=== PATIENT | female | born 1995 | race Caucasian/White ===

== ENCOUNTER 2016-12-03 11:26 | Day surgery (SDC) | payer OTHER ==
[2016-12-02 11:53] VITALS: BMI 20.7
[~2016-12-03 11:26] MED LIST: LACTATED RINGERS 1,000 ML IV SCH; LIDOCAINE 1% 20 ML VIAL (10MG/ML) FOR IV START INTRADERMA PRN
[2016-12-03 11:58] VITALS: TEMP 97
[2016-12-03] MEDS ORDERED: LIDOCAINE 1% INJ 10MG/ML (20 ML MDV) ONE (12:22)
[2016-12-03] MEDS ORDERED: PROPOFOL 10 MG/ML 20 ML VIAL IV ONE (12:22)
--- NOTE | 2016-12-03 12:36 | P.PCN ---
Date of Procedure: 12/03/16 Preoperative Diagnosis: Postoperative Diagnosis: Procedure(s) Performed: BRIEF HISTORY: Patient is a 21-year-old, pleasant, white female scheduled for an upper endoscopy as a part of evaluation of epigastric pain for the last 2 years duration. She was recently given a trial of Prilosec 20 mg daily for a month with no help. PROCEDURE PERFORMED: Esophagogastroduodenoscopy with biopsy . PREOPERATIVE DIAGNOSIS: Epigastric pain of 2 years duration. IV sedation per anesthesia. PROCEDURE: After informed consent was obtained, the patient was brought into the endoscopy unit. IV sedation was administered by Anesthesia under continuous monitoring. Initially the Olympus GIF-140 video endoscope was inserted into the mouth. Esophagus intubated without any difficulty. It was gradually advanced into the stomach and duodenum and carefully examined. in the bulb of the duodenum along the duodenal sweep there was a 2 cm clean-based ulcer along with the right duodenal stricture and the scope could not be advanced into the second part of the duodenum.The scope at this time was withdrawn to the stomach , adequately insufflated with air, and upon careful examination, mucosa of the antrum had scattered erosions and biopsies were done from this area. The , body , cardia and the fundus appeared normal. The scope was then withdrawn into the esophagus. The GE junction was located at 39 cm from the incisors. The esophagus appeared normal. There were no erosions or ulcerations seen and the patient tolerated the procedure well. IMPRESSION: 1. 2 cm clean-based duodenal ulcer along the duodenal sweep with duodenal stricture 2. Antral erosive gastritis. RECOMMENDATIONS: The findings of this examination were discussed with the patient as well as a family. She was advised to follow with the biopsy results. She was given a prescription for Prilosec 20 mg twice daily to be taken half hour before breakfast and dinnertime and follow antireflux measures. She'll be seen in the office in 3 months. Implants: Indications for Procedure: Operative Findings: Description of Procedure:
[2016-12-03 12:54] VITALS: BP 99/57; PULSE 81; RESP 16
== END 2016-12-03 13:27 | disposition home or self-care (01) ==
LOC: ORWHC2ENDO 11:26
PROVIDERS: ATTEND Internal Medicine Gastroenterology
DX: K29.50 Unspecified chronic gastritis without bleeding (principal); K26.9 Duodenal ulcer, unspecified as acute or chronic, without hemorrhage or perforation; K21.9 Gastro-esophageal reflux disease without esophagitis; Z79.3 Long term (current) use of hormonal contraceptives; Z79.899 Other long term (current) drug therapy
CPT/HCPCS: 81025; 88305; 88342; 43239; J2001; J2704

== ENCOUNTER 2017-04-22 08:36 | Day surgery (SDC) | payer BC, OTHER ==
[2017-04-20 15:55] VITALS: BMI 19.1
[~2017-04-22 08:36] MED LIST changes: -LIDOCAINE 1% 20 ML VIAL (10MG/ML) FOR IV START INTRADERMA PRN
[2017-04-22 09:23] VITALS: RESP 16; TEMP 97.5
[2017-04-22] MEDS ORDERED: LIDOCAINE 1% 20 ML VIAL (10MG/ML) FOR IV START INTRADERMA ONE (09:23)
[2017-04-22] MEDS ORDERED: PROPOFOL 10 MG/ML 20 ML VIAL IV ONE (09:55)
[2017-04-22] MEDS ORDERED: LIDOCAINE 1% INJ 10MG/ML (20 ML MDV) ONE (09:55)
[2017-04-22 10:35] VITALS: BP 99/59; PULSE 65
--- NOTE | 2017-04-22 10:52 | P.PCN ---
Date of Procedure: 04/22/17 Procedure(s) Performed: BRIEF HISTORY: Patient is a 21-year-old, pleasant, white female scheduled for an upper endoscopy as a part of evaluation of epigastric pain, intermittent nausea vomiting and early satiety for the last 3 months duration. She had an upper endoscopy done in December 2016 and was noted to have a duodenal stricture and a 2 cm duodenal ulcer. She was advised advised to avoid NSAIDs and was started on Prilosec 20 mg twice daily. She initially felt better but lately he is been having symptoms of early satiety and abdominal bloating and hence she is scheduled for repeat upper endoscopy with possible dilation of the duodenal stricture. PROCEDURE PERFORMED: Esophagogastroduodenoscopy with dilation of the duodenal stricture. PREOPERATIVE DIAGNOSIS: History of duodenal ulcer and duodenal stricture diagnosed in December 2016 now with abdominal pain and early satiety. IV sedation per anesthesia. PROCEDURE: After informed consent was obtained, the patient was brought into the endoscopy unit. IV sedation was administered by Anesthesia under continuous monitoring. Initially the Olympus GIF-140 video endoscope was inserted into the mouth. Esophagus intubated without any difficulty. It was gradually advanced into the stomach and duodenum and carefully examined. The bulb of the duodenum appeared deformed and there was a duodenal stricture identified along the duodenal sweep. The opening of the stricture was less than 5 mm. There was an active ulceration noted just proximal to the stricture. I was not able to advance the scope through the stricture. At this time I used a 10 mm pyloric balloon and the guidewire was passed through the stricture endoscopy really and the balloon was passed over the guidewire and this was dilated initially to 8 mm and subsequently to 9 mm. There was oozing identified and hence further dilation was not performed. The scope could not be advanced to the stricture. The scope at this time was withdrawn to the stomach, adequately insufflated with air, and upon careful examination, mucosa of the antrum, body, cardia and the fundus appeared normal. The scope was then withdrawn into the esophagus. The GE junction was located at 39 cm from the incisors. The esophagus appeared normal. There were no erosions or ulcerations seen and the patient tolerated the procedure well. IMPRESSION: 1. 5 mm duodenal ulcer along with a tight duodenal stricture along the duodenal sweep status post balloon dilation using 8 and 19 mm TTS balloon as described. 2. Esophagus and stomach appeared normal. RECOMMENDATIONS: The findings of this examination were discussed with the patient as well as a family. She'll remain on clear liquid diet today. She will continue on Prilosec 20 mg twice daily and continue with small frequent meals. She'll be seen in office in 3 months from now and if she still remains symptomatic, consider surgical evaluation..
== END 2017-04-22 10:49 | disposition home or self-care (01) ==
LOC: ORWHC2ENDO 08:36
PROVIDERS: ATTEND Internal Medicine Gastroenterology
DX: K31.5 Obstruction of duodenum (principal); K26.9 Duodenal ulcer, unspecified as acute or chronic, without hemorrhage or perforation; K21.9 Gastro-esophageal reflux disease without esophagitis; Z79.899 Other long term (current) drug therapy; Z79.3 Long term (current) use of hormonal contraceptives
CPT/HCPCS: 81025; 43245; J2001; J2704; C1726

== ENCOUNTER 2019-06-08 20:18 | Observation (INO) | payer BC, OTHER ==
[2019-06-08] MEDS ORDERED: SODIUM CHLORIDE 0.9% 500 ML 500 ML IV STA (20:36)
[2019-06-08] MEDS ORDERED: SODIUM CHLORIDE 0.9% 1,000 ML IV STA ×2 (20:36)
[2019-06-08] MEDS ORDERED: ONDANSETRON 4 MG/2 ML VIAL IVP STA (20:37)
[2019-06-08] MEDS ORDERED: PANTOPRAZOLE 40 MG/10 ML VIAL IVP STA (20:37)
--- NOTE | 2019-06-08 20:42 | ED ---
Dizziness HPI - General Chief Complaint: Syncope Stated Complaint: Syncope, facial injury Time Seen by Provider: 06/08/19 20:37 Source: patient, RN notes reviewed, old records reviewed Mode of arrival: ambulatory Limitations: no limitations - History of Present Illness Initial Comments: This is a 23-year-old female Sebastián. She presents today for evaluation regarding a syncopal weakness lightheadedness and dizziness. Patient is off current control of the finisher. Having significant nausea vomiting and vomiting up dark colored material. Black material. Patient has history of ulcer some occasional abdominal pain no chest pain shortness of breath. In route here patient still felt very dizzy lightheaded and weak. Patient denies drug or alcohol abuse. When she did fall she fell forward she did hit her head and sustained while laceration to the nose and right cheek. MD Complaint: dizziness, other (History of syncopal event) -: minutes(s) Timing: sudden onset Description: sense of movement, lightheadedness, near-syncope (Patient did pass out) History of Same: No History of Trauma: No Severity: severe Improves With: other (Patient did have significantly low blood pressure improved with Trendelenburg and IV bolus) Worsens With: movement, position, exertion Associated Symptoms: loss of appetite, weakness - Related Data Home Medications Medication Instructions Recorded Confirmed Biotin 5 mg PO DAILY 06/08/19 06/08/19 Ferrous Sulfate [Feosol] 325 mg PO DAILY 06/08/19 06/08/19 Allergies Allergy/AdvReac Type Severity Reaction Status Date / Time No Known Allergies Allergy Verified 06/08/19 22:22 Review of Systems ROS Statement: Those systems with pertinent positive or pertinent negative responses have been documented in the HPI. ROS Other: All systems not noted in ROS Statement are negative. Past Medical History Past Medical History: GERD/Reflux Additional Past Medical History / Comment(s): ABD PAIN ONGOING worsened with eating with intermittent vomiting,Hiatal hernia with scar tissue History of Any Multi-Drug Resistant Organisms: None Reported Past Surgical History: Tonsillectomy Additional Past Surgical History / Comment(s): EGD Past Anesthesia/Blood Transfusion Reactions: No Reported Reaction, Motion Sickness Past Psychological History: No Psychological Hx Reported Smoking Status: Never smoker Past Alcohol Use History: None Reported Past Drug Use History: None Reported - Past Family History Mother Family Medical History: No Reported History General Exam Limitations: no limitations General appearance: alert, in no apparent distress Head exam: Present: atraumatic, normocephalic, normal inspection Eye exam: Present: normal appearance, PERRL, EOMI. Absent: scleral icterus, c onjunctival injection, periorbital swelling ENT exam: Present: normal exam, mucous membranes moist Neck exam: Present: normal inspection. Absent: tenderness, meningismus, lymphadenopathy Respiratory exam: Present: normal lung sounds bilaterally. Absent: respiratory distress, wheezes, rales, rhonchi, stridor Cardiovascular Exam: Present: regular rate, normal rhythm, normal heart sounds. Absent: systolic murmur, diastolic murmur, rubs, gallop, clicks GI/Abdominal exam: Present: soft, normal bowel sounds. Absent: distended, tenderness, guarding, rebound, rigid Extremities exam: Present: normal inspection, full ROM, normal capillary refill. Absent: tenderness, pedal edema, joint swelling, calf tenderness Back exam: Present: normal inspection Neurological exam: Present: alert, oriented X3, CN II-XII intact Psychiatric exam: Present: normal affect, normal mood Skin exam: Present: warm, dry, intact, normal color. Absent: rash Course Vital Signs 06/08/19 06/08/19 20:23 20:50 Temperature 97.4 F L Pulse Rate 87 70 Respiratory 20 13 Rate Blood Pressure 61/44 103/56 O2 Sat by Pulse 92 L 100 Oximetry - Reevaluation(s) Reevaluation #1: 06/08/19 22:10 Records review Reevaluation #2: 06/08/19 23:03 She's having persistent vomiting of blood as well as blood in the stool here in the ER Reevaluation #3: 06/08/19 23:03 Recurrent sick people feels very presyncope when moving and standing - Consultations Consultation #1: Spoke with [facility] will be agreeable to admit patient will consult GI Medical Decision Making - Medical Decision Making 23 female dear for evaluation regarding syncopal event patient is vomiting dark material black material as well as a black material in stool history of ulcer likely gastric ulcer with bleed. Patient be admitted for monitoring of hemoglobin possible transfusion. - Lab Data Result diagrams: 06/08/19 20:34 06/08/19 20:34 Lab Results 06/08/19 06/08/19 06/08/19 Range/Units 20:32 20:34 20:34 WBC 21.5 H (3.8-10.6) k/uL RBC 3.86 (3.80-5.40) m/uL Hgb 11.8 (11.4-16.0) gm/dL Hct 35.3 (34.0-46.0) % MCV 91.4 (80.0-100.0) fL MCH 30.5 (25.0-35.0) pg MCHC 33.4 (31.0-37.0) g/dL RDW 13.1 (11.5-15.5) % Plt Count 335 (150-450) k/uL Neutrophils % 81 % Lymphocytes % 13 % Monocytes % 4 % Eosinophils % 0 % Basophils % 0 % Neutrophils # 17.4 H (1.3-7.7) k/uL Lymphocytes # 2.8 (1.0-4.8) k/uL Monocytes # 0.8 (0-1.0) k/uL Eosinophils # 0.1 (0-0.7) k/uL Basophils # 0.0 (0-0.2) k/uL PT (9.0-12.0) sec INR (<1.2) APTT (22.0-30.0) sec D-Dimer (<0.60) mg/L FEU Sodium (137-145) mmol/L Potassium (3.5-5.1) mmol/L Chloride (98-107) mmol/L Carbon Dioxide (22-30) mmol/L Anion Gap mmol/L BUN (7-17) mg/dL Creatinine (0.52-1.04) mg/dL Est GFR (CKD-EPI)AfAm (>60 ml/min/1.73 sqM) Est GFR (CKD-EPI)NonAf (>60 ml/min/1.73 sqM) Glucose (74-99) mg/dL Calcium (8.4-10.2) mg/dL Magnesium (1.6-2.3) mg/dL Total Bilirubin (0.2-1.3) mg/dL AST (14-36) U/L ALT (9-52) U/L Alkaline Phosphatase (38-126) U/L Creatine Kinase (30-135) U/L Troponin I (0.000-0.034) ng/mL Total Protein (6.3-8.2) g/dL Albumin (3.5-5.0) g/dL TSH (0.465-4.680) mIU/L Free T4 (0.78-2.19) ng/dL Urine Color Urine Appearance (Clear) Urine pH (5.0-8.0) Ur Specific [place] (1.001-1.035) Urine Protein (Negative) Urine Glucose (UA) (Negative) Urine Ketones (Negative) Urine Blood (Negative) Urine Nitrite (Negative) Urine Bilirubin (Negative) Urine Urobilinogen (<2.0) mg/dL Ur Leukocyte Esterase (Negative) Urine WBC (0-5) /hpf Ur Squamous Epith Cells (0-4) /hpf Hyaline Casts (0-2) /lpf Urine Mucus (None) /hpf Urine HCG, Qual (Not Detectd) Serum Alcohol mg/dL Blood Type O Positive Blood Type Confirm O Positive Blood Type Recheck No Previous Record Bld Type Recheck Status CABO Indicated Antibody Screen NEGATIVE Spec Expiration Date 06/11/2019233306/08/19 06/08/19 06/08/19 Range/Units 20:34 20:34 20:34 WBC (3.8-10.6) k/uL RBC (3.80-5.40) m/uL Hgb (11.4-16.0) gm/dL Hct (34.0-46.0) % MCV (80.0-100.0) fL MCH (25.0-35.0) pg MCHC (31.0-37.0) g/dL RDW (11.5-15.5) % Plt Count (150-450) k/uL Neutrophils % % Lymphocytes % % Monocytes % % Eosinophils % % Basophils % % Neutrophils # (1.3-7.7) k/uL Lymphocytes # (1.0-4.8) k/uL Monocytes # (0-1.0) k/uL Eosinophils # (0-0.7) k/uL Basophils # (0-0.2) k/uL PT 10.8 (9.0-12.0) sec INR 1.0 (<1.2) APTT 21.3 L (22.0-30.0) sec D-Dimer 0.29 (<0.60) mg/L FEU Sodium 137 (137-145) mmol/L Potassium 3.8 (3.5-5.1) mmol/L Chloride 101 (98-107) mmol/L Carbon Dioxide 26 (22-30) mmol/L Anion Gap 10 mmol/L BUN 37 H (7-17) mg/dL Creatinine 0.70 (0.52-1.04) mg/dL Est GFR (CKD-EPI)AfAm >90 (>60 ml/min/1.73 sqM) Est GFR (CKD-EPI)NonAf >90 (>60 ml/min/1.73 sqM) Glucose 119 H (74-99) mg/dL Calcium 9.7 (8.4-10.2) mg/dL Magnesium 1.9 (1.6-2.3) mg/dL Total Bilirubin 0.7 (0.2-1.3) mg/dL AST 21 (14-36) U/L ALT 12 (9-52) U/L Alkaline Phosphatase 50 (38-126) U/L Creatine Kinase 72 (30-135) U/L Troponin I <0.012 (0.000-0.034) ng/mL Total Protein 6.9 (6.3-8.2) g/dL Albumin 4.2 (3.5-5.0) g/dL TSH 0.443 L (0.465-4.680) mIU/L Free T4 0.97 (0.78-2.19) ng/dL Urine Color Urine Appearance (Clear) Urine pH (5.0-8.0) Ur Specific [place] (1.001-1.035) Urine Protein (Negative) Urine Glucose (UA) (Negative) Urine Ketones (Negative) Urine Blood (Negative) Urine Nitrite (Negative) Urine Bilirubin (Negative) Urine Urobilinogen (<2.0) mg/dL Ur Leukocyte Esterase (Negative) Urine WBC (0-5) /hpf Ur Squamous Epith Cells (0-4) /hpf Hyaline Casts (0-2) /lpf Urine Mucus (None) /hpf Urine HCG, Qual (Not Detectd) Serum Alcohol <10 mg/dL Blood Type Blood Type Confirm Blood Type Recheck Bld Type Recheck Status Antibody Screen Spec Expiration Date 06/08/19 06/08/19 Range/Units 21:38 21:38 WBC (3.8-10.6) k/uL RBC (3.80-5.40) m/uL Hgb (11.4-16.0) gm/dL Hct (34.0-46.0) % MCV (80.0-100.0) fL MCH (25.0-35.0) pg MCHC (31.0-37.0) g/dL RDW (11.5-15.5) % Plt Count (150-450) k/uL Neutrophils % % Lymphocytes % % Monocytes % % Eosinophils % % Basophils % % Neutrophils # (1.3-7.7) k/uL Lymphocytes # (1.0-4.8) k/uL Monocytes # (0-1.0) k/uL Eosinophils # (0-0.7) k/uL Basophils # (0-0.2) k/uL PT (9.0-12.0) sec INR (<1.2) APTT (22.0-30.0) sec D-Dimer (<0.60) mg/L FEU Sodium (137-145) mmol/L Potassium (3.5-5.1) mmol/L Chloride (98-107) mmol/L Carbon Dioxide (22-30) mmol/L Anion Gap mmol/L BUN (7-17) mg/dL Creatinine (0.52-1.04) mg/dL Est GFR (CKD-EPI)AfAm (>60 ml/min/1.73 sqM) Est GFR (CKD-EPI)NonAf (>60 ml/min/1.73 sqM) Glucose (74-99) mg/dL Calcium (8.4-10.2) mg/dL Magnesium (1.6-2.3) mg/dL Total Bilirubin (0.2-1.3) mg/dL AST (14-36) U/L ALT (9-52) U/L Alkaline Phosphatase (38-126) U/L Creatine Kinase (30-135) U/L Troponin I (0.000-0.034) ng/mL Total Protein (6.3-8.2) g/dL Albumin (3.5-5.0) g/dL TSH (0.465-4.680) mIU/L Free T4 (0.78-2.19) ng/dL Urine Color Yellow Urine Appearance Clear (Clear) Urine pH 7.0 (5.0-8.0) Ur Specific [place] 1.027 (1.001-1.035) Urine Protein 1+ H (Negative) Urine Glucose (UA) Negative (Negative) Urine Ketones Trace H (Negative) Urine Blood Negative (Negative) Urine Nitrite Negative (Negative) Urine Bilirubin Negative (Negative) Urine Urobilinogen <2.0 (<2.0) mg/dL Ur Leukocyte Esterase Negative (Negative) Urine WBC 1 (0-5) /hpf Ur Squamous Epith Cells 1 (0-4) /hpf Hyaline Casts 17 H (0-2) /lpf Urine Mucus Occasional H (None) /hpf Urine HCG, Qual Not Detected (Not Detectd) Serum Alcohol mg/dL Blood Type Blood Type Confirm Blood Type Recheck Bld Type Recheck Status Antibody Screen Spec Expiration Date - EKG Data -: EKG Interpreted by Me (EKG shows sinus rhythm rate of 74, CT 130, QRS 90, QTC 439) - Radiology Data Radiology results: report reviewed (CT brained C-spine and facial bones and CT chest is negative for acute disease), image reviewed Critical Care Time Critical Care Time: Yes Total Critical Care Time: 31 Disposition Clinical Impression: Syncope, UGIB (upper gastrointestinal bleed), Facial laceration Disposition: ADMITTED IP TO THIS [facility] Condition: Fair Is patient prescribed a controlled substance at d/c from ED?: No Referrals: Teofilo Beth MD [STAFF PHYSICIAN] - 1-2 days
[2019-06-08 20:52] LABS: Basophils % (A) 0 %; Eosinophils # (A) 0.1 k/uL (0-0.7); Eosinophils % (A) 0 %; HCT 35.3 % (34.0-46.0); HGB 11.8 gm/dL (11.4-16.0); Lymphocytes # (A) 2.8 k/uL (1.0-4.8); Lymphocytes % (A) 13 %; MCH 30.5 pg (25.0-35.0); MCHC 33.4 g/dL (31.0-37.0); MCV 91.4 fL (80.0-100.0); Mean Platelet Volume 7.2; Monocytes # (A) 0.8 k/uL (0-1.0); Monocytes % (A) 4 %; Neutrophils # (A) 17.4 k/uL (1.3-7.7); Neutrophils % (A) 81 %; Platelet Count 335 k/uL (150-450); RBC 3.86 m/uL (3.80-5.40); RDW 13.1 % (11.5-15.5); WBC 21.5 k/uL (3.8-10.6)
[2019-06-08 21:05] LABS: ALT 12 U/L (9-52); AST 21 U/L (14-36); African American GFR (CKD) >90 (>60 ml/min/1.73 sqM); Albumin 4.2 g/dL (3.5-5.0); Alcohol <10 mg/dL; Alkaline Phosphatase 50 U/L (38-126); Anion Gap 10 mmol/L; Blood Urea Nitrogen 37 mg/dL (7-17); Calcium 9.7 mg/dL (8.4-10.2); Carbon Dioxide 26 mmol/L (22-30); Chloride 101 mmol/L (98-107); Creatine Kinase 72 U/L (30-135); Glucose 119 mg/dL (74-99); Magnesium 1.9 mg/dL (1.6-2.3); Non-African American GFR(CKD) >90 (>60 ml/min/1.73 sqM); Potassium 3.8 mmol/L (3.5-5.1); Sodium 137 mmol/L (137-145); Total Bilirubin 0.7 mg/dL (0.2-1.3); Total Protein 6.9 g/dL (6.3-8.2)
[2019-06-08 21:20] LABS: D-Dimer 0.29 mg/L FEU (<0.60); Prothrombin Time 10.8 sec (9.0-12.0)
[2019-06-08 21:22] LABS: Partial Thromboplastin Time 21.3 sec (22.0-30.0)
[2019-06-08 21:50] LABS: Appearance,Urine Clear (Clear); Bilirubin,Urine Negative (Negative); Blood,Urine Negative (Negative); Color,Urine Yellow; Glucose,Urine (UA) Negative (Negative); Hyaline Casts,Urine 17 /lpf (0-2); Ketones,Urine Trace (Negative); Leukocyte Esterase,Urine Negative (Negative); Mucus,Urine Occasional /hpf; Nitrite,Urine Negative (Negative); Protein,Urine 1+ (Negative); Specific Gravity,Urine 1.027 (1.001-1.035); Squamous Epithelial Cell,Urine 1 /hpf (0-4); Urobilinogen,Urine <2.0 mg/dL (<2.0); WBC,Urine 1 /hpf (0-5)
[2019-06-08 22:03] LABS: T4, Free (Free Thyroxine) 0.97 ng/dL (0.78-2.19)
--- NOTE | 2019-06-08 22:35 | CT ---
EXAMINATION TYPE: CT facial bones wo con DATE OF EXAM: 06/08/2019 COMPARISON: None HISTORY: Syncope w/LOC. Pt hit nose and front of face on bathroom cabinet CT DLP: 1019.10 mGycm Automated exposure control for dose reduction was used. Heart and mediastinum are normal. Lungs are clear. Diaphragm is normal. There are chest leads. Bony t horax is intact. IMPRESSION: Normal chest.
--- NOTE | 2019-06-08 22:43 | CT ---
EXAMINATION TYPE: CT angio chest DATE OF EXAM: 06/08/2019 COMPARISON: None HISTORY: Syncope w/LOC. Pt hit nose and front of face on bathroom cabinet CT DLP: 245.6 mGycm Automated exposure control for dose reduction was used. CONTRAST: Performed with IV Contrast, patient injected with 100 mL of Isovue 370. There are 3-D post processed images. The lungs are clear of consolidation. There is no pleural effusion or pneumothorax. Mediastinum is no rmal. Thoracic aorta is intact. There is no aneurysm or dissection. Heart size is normal. There is no pericardial effusion. There is normal contrast opacification of the pulmonary arteries. I see no filling defect. Thoracic spine is intact. Ribs appear intact. Sternum is intact. IMPRESSION: Normal exam. No evidence of pulmonary embolism.
--- NOTE | 2019-06-08 22:46 | CT ---
EXAMINATION TYPE: CT brain cspine wo con DATE OF EXAM: 06/08/2019 COMPARISON: 07/24/2015 HISTORY: Syncope w/LOC. Pt hit nose and front of face on bathroom cabinet CT DLP: 1019.1 mGycm Automated exposure control for dose reduction was used. Multiple axial sections were obtained of the brain without contrast. Multiple axial sections were obt ained from the skull base to T1 vertebra without contrast. Ventricles and sulci appear normal. There is no mass effect nor midline shift. There is no sign of in tracranial hemorrhage. The calvarium is intact. Cervical vertebra have fairly normal spacing and alignment. Posterior elements are intact. The skull base is intact. There is no evidence of a fracture. Impression new left negative CT scan of the brain. Negative CT scan of the cervical spine. No change.
[2019-06-08] MEDS ORDERED: TRANEXAMIC ACID 1,000 MG in SODIUM CHLORIDE 0.9% 100 ML IVPB ONE (22:49)
[2019-06-08] MEDS ORDERED: ONDANSETRON 4 MG/2 ML VIAL IVP PRN (23:04)
[2019-06-08] MEDS ORDERED: SODIUM CHLORIDE 0.9% 1,000 ML IV ONE (23:04)
[2019-06-08] MEDS ORDERED: LIDOCAINE 1% INJ 10MG/ML (20 ML MDV) SQ ONE (23:27)
[2019-06-08 23:29] LABS: Basophils % (A) 0 %; Eosinophils % (A) 0 %; HCT 34.7 % (34.0-46.0); HGB 11.2 gm/dL (11.4-16.0); Lymphocytes # (A) 1.3 k/uL (1.0-4.8); Lymphocytes % (A) 6 %; MCH 29.5 pg (25.0-35.0); MCHC 32.2 g/dL (31.0-37.0); MCV 91.7 fL (80.0-100.0); Mean Platelet Volume 7.2; Monocytes # (A) 0.6 k/uL (0-1.0); Monocytes % (A) 3 %; Neutrophils # (A) 18.2 k/uL (1.3-7.7); Neutrophils % (A) 90 %; Platelet Count 272 k/uL (150-450); RBC 3.79 m/uL (3.80-5.40); WBC 20.3 k/uL (3.8-10.6)
--- NOTE | 2019-06-08 23:49 | ED ---
Medical Decision Making - Lab Data Result diagrams: 06/08/19 23:16 06/08/19 20:34 <MecheCastillo haroantonino Haywood - Last Filed: 06/08/19 23:43> - Lab Data Result diagrams: 06/08/19 23:16 06/08/19 20:34 <Wilfredo Butler - Last Filed: 06/09/19 17:41> - Lab Data Lab Results 06/08/19 06/08/19 06/08/19 Range/Units 20:32 20:34 20:34 WBC 21.5 H (3.8-10.6) k/uL RBC 3.86 (3.80-5.40) m/uL Hgb 11.8 (11.4-16.0) gm/dL Hct 35.3 (34.0-46.0) % MCV 91.4 (80.0-100.0) fL MCH 30.5 (25.0-35.0) pg MCHC 33.4 (31.0-37.0) g/dL RDW 13.1 (11.5-15.5) % Plt Count 335 (150-450) k/uL Neutrophils % 81 % Lymphocytes % 13 % Monocytes % 4 % Eosinophils % 0 % Basophils % 0 % Neutrophils # 17.4 H (1.3-7.7) k/uL Lymphocytes # 2.8 (1.0-4.8) k/uL Monocytes # 0.8 (0-1.0) k/uL Eosinophils # 0.1 (0-0.7) k/uL Basophils # 0.0 (0-0.2) k/uL PT (9.0-12.0) sec INR (<1.2) APTT (22.0-30.0) sec D-Dimer (<0.60) mg/L FEU Sodium (137-145) mmol/L Potassium (3.5-5.1) mmol/L Chloride (98-107) mmol/L Carbon Dioxide (22-30) mmol/L Anion Gap mmol/L BUN (7-17) mg/dL Creatinine (0.52-1.04) mg/dL Est GFR (CKD-EPI)AfAm (>60 ml/min/1.73 sqM) Est GFR (CKD-EPI)NonAf (>60 ml/min/1.73 sqM) Glucose (74-99) mg/dL Calcium (8.4-10.2) mg/dL Magnesium (1.6-2.3) mg/dL Total Bilirubin (0.2-1.3) mg/dL AST (14-36) U/L ALT (9-52) U/L Alkaline Phosphatase (38-126) U/L Creatine Kinase (30-135) U/L Troponin I (0.000-0.034) ng/mL Total Protein (6.3-8.2) g/dL Albumin (3.5-5.0) g/dL TSH (0.465-4.680) mIU/L Free T4 (0.78-2.19) ng/dL Urine Color Urine Appearance (Clear) Urine pH (5.0-8.0) Ur Specific [place] (1.001-1.035) Urine Protein (Negative) Urine Glucose (UA) (Negative) Urine Ketones (Negative) Urine Blood (Negative) Urine Nitrite (Negative) Urine Bilirubin (Negative) Urine Urobilinogen (<2.0) mg/dL Ur Leukocyte Esterase (Negative) Urine WBC (0-5) /hpf Ur Squamous Epith Cells (0-4) /hpf Hyaline Casts (0-2) /lpf Urine Mucus (None) /hpf Urine HCG, Qual (Not Detectd) Serum Alcohol mg/dL Blood Type O Positive Blood Type Confirm O Positive Blood Type Recheck No Previous Record Bld Type Recheck Status CABO Indicated Antibody Screen NEGATIVE Spec Expiration Date 06/11/2019233306/08/19 06/08/19 06/08/19 Range/Units 20:34 20:34 20:34 WBC (3.8-10.6) k/uL RBC (3.80-5.40) m/uL Hgb (11.4-16.0) gm/dL Hct (34.0-46.0) % MCV (80.0-100.0) fL MCH (25.0-35.0) pg MCHC (31.0-37.0) g/dL RDW (11.5-15.5) % Plt Count (150-450) k/uL Neutrophils % % Lymphocytes % % Monocytes % % Eosinophils % % Basophils % % Neutrophils # (1.3-7.7) k/uL Lymphocytes # (1.0-4.8) k/uL Monocytes # (0-1.0) k/uL Eosinophils # (0-0.7) k/uL Basophils # (0-0.2) k/uL PT 10.8 (9.0-12.0) sec INR 1.0 (<1.2) APTT 21.3 L (22.0-30.0) sec D-Dimer 0.29 (<0.60) mg/L FEU Sodium 137 (137-145) mmol/L Potassium 3.8 (3.5-5.1) mmol/L Chloride 101 (98-107) mmol/L Carbon Dioxide 26 (22-30) mmol/L Anion Gap 10 mmol/L BUN 37 H (7-17) mg/dL Creatinine 0.70 (0.52-1.04) mg/dL Est GFR (CKD-EPI)AfAm >90 (>60 ml/min/1.73 sqM) Est GFR (CKD-EPI)NonAf >90 (>60 ml/min/1.73 sqM) Glucose 119 H (74-99) mg/dL Calcium 9.7 (8.4-10.2) mg/dL Magnesium 1.9 (1.6-2.3) mg/dL Total Bilirubin 0.7 (0.2-1.3) mg/dL AST 21 (14-36) U/L ALT 12 (9-52) U/L Alkaline Phosphatase 50 (38-126) U/L Creatine Kinase 72 (30-135) U/L Troponin I <0.012 (0.000-0.034) ng/mL Total Protein 6.9 (6.3-8.2) g/dL Albumin 4.2 (3.5-5.0) g/dL TSH 0.443 L (0.465-4.680) mIU/L Free T4 0.97 (0.78-2.19) ng/dL Urine Color Urine Appearance (Clear) Urine pH (5.0-8.0) Ur Specific [place] (1.001-1.035) Urine Protein (Negative) Urine Glucose (UA) (Negative) Urine Ketones (Negative) Urine Blood (Negative) Urine Nitrite (Negative) Urine Bilirubin (Negative) Urine Urobilinogen (<2.0) mg/dL Ur Leukocyte Esterase (Negative) Urine WBC (0-5) /hpf Ur Squamous Epith Cells (0-4) /hpf Hyaline Casts (0-2) /lpf Urine Mucus (None) /hpf Urine HCG, Qual (Not Detectd) Serum Alcohol <10 mg/dL Blood Type Blood Type Confirm Blood Type Recheck Bld Type Recheck Status Antibody Screen Spec Expiration Date 06/08/19 06/08/19 Range/Units 21:38 21:38 WBC (3.8-10.6) k/uL RBC (3.80-5.40) m/uL Hgb (11.4-16.0) gm/dL Hct (34.0-46.0) % MCV (80.0-100.0) fL MCH (25.0-35.0) pg MCHC (31.0-37.0) g/dL RDW (11.5-15.5) % Plt Count (150-450) k/uL Neutrophils % % Lymphocytes % % Monocytes % % Eosinophils % % Basophils % % Neutrophils # (1.3-7.7) k/uL Lymphocytes # (1.0-4.8) k/uL Monocytes # (0-1.0) k/uL Eosinophils # (0-0.7) k/uL Basophils # (0-0.2) k/uL PT (9.0-12.0) sec INR (<1.2) APTT (22.0-30.0) sec D-Dimer (<0.60) mg/L FEU Sodium (137-145) mmol/L Potassium (3.5-5.1) mmol/L Chloride (98-107) mmol/L Carbon Dioxide (22-30) mmol/L Anion Gap mmol/L BUN (7-17) mg/dL Creatinine (0.52-1.04) mg/dL Est GFR (CKD-EPI)AfAm (>60 ml/min/1.73 sqM) Est GFR (CKD-EPI)NonAf (>60 ml/min/1.73 sqM) Glucose (74-99) mg/dL Calcium (8.4-10.2) mg/dL Magnesium (1.6-2.3) mg/dL Total Bilirubin (0.2-1.3) mg/dL AST (14-36) U/L ALT (9-52) U/L Alkaline Phosphatase (38-126) U/L Creatine Kinase (30-135) U/L Troponin I (0.000-0.034) ng/mL Total Protein (6.3-8.2) g/dL Albumin (3.5-5.0) g/dL TSH (0.465-4.680) mIU/L Free T4 (0.78-2.19) ng/dL Urine Color Yellow Urine Appearance Clear (Clear) Urine pH 7.0 (5.0-8.0) Ur Specific [place] 1.027 (1.001-1.035) Urine Protein 1+ H (Negative) Urine Glucose (UA) Negative (Negative) Urine Ketones Trace H (Negative) Urine Blood Negative (Negative) Urine Nitrite Negative (Negative) Urine Bilirubin Negative (Negative) Urine Urobilinogen <2.0 (<2.0) mg/dL Ur Leukocyte Esterase Negative (Negative) Urine WBC 1 (0-5) /hpf Ur Squamous Epith Cells 1 (0-4) /hpf Hyaline Casts 17 H (0-2) /lpf Urine Mucus Occasional H (None) /hpf Urine HCG, Qual Not Detected (Not Detectd) Serum Alcohol mg/dL Blood Type Blood Type Confirm Blood Type Recheck Bld Type Recheck Status Antibody Screen Spec Expiration Date Disposition <Whit Ansari - Last Filed: 06/08/19 23:43> <Wilfredo Butler B - Last Filed: 06/09/19 17:41> Clinical Impression: Syncope, UGIB (upper gastrointestinal bleed), Facial laceration Disposition: ADMITTED IP TO THIS HOSP Condition: Fair Procedures - Laceration Laceration #1 Consent Obtained: verbal consent Indication: laceration Site: face (Right maxillary region) Size (cm): 2 Description: linear Depth: simple, single layer Anesthetic Used: lidocaine 1% Anesthesia Technique: local infiltration Amount (mls): 2 Pre-repair: wound explored, irrigated extensively, foreign body removed Type of Sutures: nylon Size of Sutures: 6-0 Number of Sutures: 3 Technique: simple, interrupted Patient Tolerated Procedure: well, no complications Laceration #2 Consent Obtained: verbal consent Indication: laceration Site: face (Nasal bridge) Size (cm): 3 Description: linear Depth: simple, single layer Anesthetic Used: lidocaine 1% Anesthesia Technique: local infiltration Amount (mls): 3 Pre-repair: wound explored, irrigated extensively Type of Sutures: nylon Size of Sutures: 6-0 Number of Sutures: 5 Technique: simple, interrupted Patient Tolerated Procedure: well, no complications <Whit Ansari M - Last Filed: 06/08/19 23:43>
[2019-06-09] MEDS: ACETAMINOPHEN TAB 325 MG TAB PO PRN ×3 (01:08→16:58)
[2019-06-09] MEDS: PANTOPRAZOLE 40 MG/10 ML VIAL IVP SCH ×2 (09:03→21:00)
[2019-06-09] MEDS ORDERED: PROPOFOL 10 MG/ML 20 ML VIAL IV ONE (14:11)
[2019-06-09] MEDS ORDERED: LIDOCAINE 1% INJ 10MG/ML (20 ML MDV) ONE (14:11)
[2019-06-09] MEDS ORDERED: IV FLUID CONTINUATION 1,000 ML IV ONE ×2 (14:17)
--- NOTE | 2019-06-09 14:30 | P.PCN ---
Date of Procedure: 06/09/19 Procedure(s) Performed: BRIEF HISTORY: Patient is a 23-year-old, pleasant, white female with history of peptic ulcer disease. The hospital with upper GI bleed. She had couple of episodes of coffee-ground emesis and black tarry stools. Hemoglobin was 7.2 g/dL. She is scheduled for an upper endoscopy to evaluate further. PROCEDURE PERFORMED: Esophagogastroduodenoscopy with biopsy. PREOPERATIVE DIAGNOSIS: Of a GI bleed. IV sedation per anesthesia. PROCEDURE: After informed consent was obtained, the patient was brought into the endoscopy unit. IV sedation was administered by Anesthesia under continuous monitoring. Initially the Olympus GIF-140 video endoscope was inserted into the mouth. Esophagus intubated without any difficulty. It was gradually advanced into the stomach and the pylorus was deformed. The scope could not be advanced into the duodenum because of pyloric stenosis. Thestomach, adequately insufflated with air, and upon careful examination, mucosa of the antrumhad diffuse gastritis and a superficial linear antral ulcer identified mostly in the prepyloric area with no active bleeding. Biopsies were done from this area. The , body, cardia and the fundus appeared normal. The scope was then withdrawn into the esophagus. The GE junction was located at 39 cm from the incisors. The esophagus appeared normal. There were no erosions or ulcerations seen and the patient tolerated the procedure well. IMPRESSION: 1. Antral gastritis and linear antral ulcer in the prepyloric area with no active bleeding . 2. Severe Pyloric stenosis. 3. Deformed pylorus. RECOMMENDATIONS: The findings of this examination were discussed with the patient as well as a family. She'll be started on Protonix 40 mg daily, advised to avoid NSAIDs. She will start until liquid diet will be advanced as tolerated. .
--- NOTE | 2019-06-09 14:35 | CONS ---
CONSULTATION The patient is a 23 -year-old white female with prior history of peptic ulcer disease, presented to the emergency after she had an episode of lightheadedness and dizziness. Following that, she passed out and had a skin laceration on the nose and right cheek. while coming to the ER while en route, she had 2 episodes of coffee-ground emesis and subsequently two episodes of black tarry stools. Since being in the emergency room, she did not have any further episodes of bleeding. She reports no abdominal pain. She was diagnosed with peptic ulcer disease in November of 2016 and was also diagnosed with a duodenal ulcer which was dilated a month later. She took Prilosec for a few months and then stopped. Currently denies any NSAID use. PAST MEDICAL HISTORY: Unremarkable. PAST SURGICAL HISTORY: Peptic ulcer disease, headaches and duodenal stricture. PAST SURGICAL HISTORY: Tonsillectomy. MEDICATIONS: At home: ferrous sulfate, biotin. ALLERGIES: No known drug allergies. SOCIAL HISTORY: No smoking. No alcohol use. FAMILY HISTORY: Unremarkable. REVIEW OF SYSTEMS: CARDIOPULMONARY: No chest pain, shortness of breath. GENITOURINARY: No dysuria or hematuria. MUSCULOSKELETAL: Unremarkable. SKIN unremarkable. ENDOCRINE unremarkable. PSYCHIATRIC unremarkable. NEUROLOGY unremarkable. ENT/vision unremarkable. CONSTITUTIONAL: No recent weight loss. No fever, chills, night sweats. PHYSICAL EXAMINATION: Blood pressure is 101/54, pulse a 79. Temperature 98. HEENT examination unremarkable. Conjunctivae pink. Sclerae anicteric. oral cavity no lesions. NECK: No JVD or lymph node enlargement. CHEST: Clear to auscultation. HEART: Regular rate and rhythm. ABDOMEN: Soft. Bowel sounds are positive. No organomegaly. EXTREMITIES: No pedal edema. SKIN: no rashes. NEUROLOGIC: Alert and oriented x3. No focal deficits. LABS: From today WBC 20.3, hemoglobin 11.2, platelets normal. Basic metabolic panel, BUN 37, creatinine 0.70. IMPRESSION: 1. Acute upper gastrointestinal bleed with couple of episodes of coffee-ground emesis and black tarry stools that started yesterday morning. Hemoglobin stable at 11.8 g/dL. She does have prior history of peptic ulcer disease with duodenal stricture diagnosed in 2016. 2. Leukocytosis. RECOMMENDATIONS: 1. Continue with Protonix 40 mg daily. 2. CBC daily. 3. We will proceed with an upper endoscopy today to evaluate further. Discussed with the patient the risks, benefits and complications and she is agreeable to it. Thank you for this consultation. MMODL / IJN: [id number] /
[2019-06-09] MEDS ORDERED: HYDROcodone/APAP 5-325MG 1 EACH TAB PO STA (23:59)
--- NOTE | 2019-06-10 00:06 | P.HPIM ---
History of Present Illness H&P Date: 06/09/19 Chief Complaint: Syncope Patient is a 23-year-old female with a known history of GERD, previous history of EGD and peptic ulcer several years ago came to ER after a syncopal episode and fall. Apparently patient has been having nausea and vomiting since yesterday. Patient did have a dark colored bowel movement and while she was getting up from the toilet, suddenly felt dizzy and lightheaded and had a syncopal episode. Patient lost consciousness for about a minute and she crawled to her bedroom and called her family. Denied any seizure activity. Denied any abdominal pain. Did have mild discomfort since yesterday. No loss of bowel or bladder control. No fever no chills. No headache or neck stiffness. Patient sustained lacerations on the Route of the nose and forehead. Patient denied any [id number] pain medication use. Patient did drink alcohol about 4 glasses on last Wednesday. Denied any regular alcohol use. Denied any smoking. No recent illnesses or sick contacts. No recent travel. CT angiogram of the chest showed no evidence of pulmonary embolism. CT facial and CT head and neck showed no fractures or dislocations. No acute intracranial process. Review of Systems Constitutional: Patient denies any fever or chills . No generalized weakness or weight loss. Abdomen: Patient denied nausea vomiting and diarrhea and abdominal pain. Cardiovascular: Patient denies any chest pain or short of breath no palpitations. Respiratory: patient denied any cough is from production. No shortness of mini ath Neurologic: Patient denied any numbness or tingling headache. Musculoskeletal: Patient denies any complaints of joint swelling or deformity. Skin: Negative Psychiatric: Negative Endocrine: No heat or cold intolerance. No recent weight gain. Genitourinary: No dysuria or hematuria. All other 14 point ROS negative except the above Past Medical History Past Medical History: GERD/Reflux Additional Past Medical History / Comment(s): ABD PAIN ONGOING worsened with eating with intermittent vomiting (approx last episode of emesis with meal intake 1.5 year ago),Hiatal hernia with scar tissue, History of Any Multi-Drug Resistant Organisms: None Reported Past Surgical History: Tonsillectomy Additional Past Surgical History / Comment(s): EGD, multiple intestinal ulcers noted. Past Anesthesia/Blood Transfusion Reactions: No Reported Reaction, Motion Sickness Past Psychological History: No Psychological Hx Reported Smoking Status: Never smoker Past Alcohol Use History: None Reported Past Drug Use History: None Reported - Past Family History Mother Family Medical History: No Reported History Medications and Allergies Home Medications Medication Instructions Recorded Confirmed Type Biotin 5 mg PO DAILY 06/08/19 06/08/19 History Ferrous Sulfate [Feosol] 325 mg PO DAILY 06/08/19 06/08/19 History Acetaminophen [Tylenol] 650 mg PO Q6HR PRN 06/09/19 06/09/19 History Pedi Multivit No.25/Folic Acid 1 tab PO DAILY 06/09/19 06/09/19 History [Flintstones Multivit Chew Tab] Allergies Allergy/AdvReac Type Severity Reaction Status Date / Time No Known Allergies Allergy Verified 06/08/19 22:22 Physical Exam Vitals: Vital Signs Temp Pulse Pulse Resp BP BP Pulse Ox 06/09/19 08:00 98.4 F 77 18 103/50 99 06/09/19 04:00 98.8 F 88 17 106/56 99 06/09/19 00:50 82 109/66 06/09/19 00:00 97.8 F 88 17 109/66 100 06/08/19 23:21 17 96 06/08/19 20:50 70 13 103/56 100 06/08/19 20:23 97.4 F L 87 20 61/44 92 L Intake and Output 06/08/19 06/09/19 06/09/19 22:59 06:59 14:59 Intake Total 200 Balance 200 Intake: Intake, IV Titration 200 Amount Sodium Chloride 0.9% 1, 100 000 ml @ 100 mls/hr IV . Q10H ONE Rx#:[id number] Tranexamic Acid 1,000 mg 100 In Sodium Chloride 0.9% 100 ml @ 200 mls/hr IVPB ONCE ONE Rx#:[id number] Other: Voiding Method Toilet Weight 56.245 kg 57 kg PHYSICAL EXAMINATION: Patient is lying in the bed comfortably, no acute distress, awake alert and oriented.. HEENT: Normocephalic. Neck is supple. Pupils reactive. Nostrils clear. Oral cavity is moist. Ears reveal no drainage. Neck reveals no JVD, carotid bruits, or thyromegaly. CHEST EXAMINATION: Trachea is central. Symmetrical expansion. Lung hill clear to auscultation and percussion. CARDIAC: Normal S1, S2 with no gallops. No murmurs ABDOMEN: Soft. Bowel sounds normal. No organomegaly. No abdominal bruits. Extremities: reveal no edema. No clubbing or cyanosis Neurologically awake, alert, oriented x3 with well-coordinated movements. No focal deficits noted Skin: No rash or skin lesions. Lacerated wounds on the forehead and on the Route of the nose Musculoskeletal: No joint swelling or deformity. Normal range of motion. Results CBC & Chem 7: 06/08/19 23:16 06/08/19 20:34 Labs: Abnormal Lab Results - Last 24 Hours (Table) 06/08/19 06/08/19 06/08/19 Range/Units 20:34 20:34 20:34 WBC 21.5 H (3.8-10.6) k/uL RBC (3.80-5.40) m/uL Hgb (11.4-16.0) gm/dL Neutrophils # 17.4 H (1.3-7.7) k/uL APTT 21.3 L (22.0-30.0) sec BUN 37 H (7-17) mg/dL Glucose 119 H (74-99) mg/dL TSH 0.443 L (0.465-4.680) mIU/L Urine Protein (Negative) Urine Ketones (Negative) Hyaline Casts (0-2) /lpf Urine Mucus (None) /hpf 06/08/19 06/08/19 Range/Units 21:38 23:16 WBC 20.3 H (3.8-10.6) k/uL RBC 3.79 L (3.80-5.40) m/uL Hgb 11.2 L (11.4-16.0) gm/dL Neutrophils # 18.2 H (1.3-7.7) k/uL APTT (22.0-30.0) sec BUN (7-17) mg/dL Glucose (74-99) mg/dL TSH (0.465-4.680) mIU/L Urine Protein 1+ H (Negative) Urine Ketones Trace H (Negative) Hyaline Casts 17 H (0-2) /lpf Urine Mucus Occasional H (None) /hpf Thrombosis Risk Factor Assmnt - DVT/VTE Prophylaxis DVT/VTE Prophylaxis: Pharmacologic Prophylaxis ordered - Choose All That Apply Any of the Below Risk Factors Present?: No Each Risk Factor Represents 5 Points: Multiple trauma (< 1 month) Thrombosis Risk Factor Assessment Total Risk Factor Score: 5 Thrombosis Risk Factor Assessment Level: High Risk Assessment and Plan Assessment: Acute syncopal episode likely due to orthostatic hypotension while she was getting up from the toilet. Acute GI bleed with nausea and coffee-ground vomiting Mild acute blood loss anemia. Hemoglobin 11.8 GERD History of EGD and peptic ulcer disease and dilation of the esophagus DVT prophylaxis with SCDs Plan: Patient be continued on IV hydration and continue with PPI and follow with H&H. Gastroenterology was consulted. Monitor closely and further recommendations based on the clinical course. Time with Patient: Greater than 30
[2019-06-10] MEDS: ACETAMINOPHEN TAB 325 MG TAB PO PRN (04:28)
[2019-06-10 07:18] LABS: African American GFR (CKD) >90 (>60 ml/min/1.73 sqM); Anion Gap 6 mmol/L; Blood Urea Nitrogen 8 mg/dL (7-17); Calcium 8.2 mg/dL (8.4-10.2); Carbon Dioxide 23 mmol/L (22-30); Chloride 111 mmol/L (98-107); Glucose 73 mg/dL (74-99); Non-African American GFR(CKD) >90 (>60 ml/min/1.73 sqM); Potassium 3.8 mmol/L (3.5-5.1); Sodium 140 mmol/L (137-145)
[2019-06-10] MEDS: PANTOPRAZOLE 40 MG/10 ML VIAL IVP SCH (08:34)
[2019-06-10 09:35] LABS: Basophils % (A) 0 %; Eosinophils # (A) 0.1 k/uL (0-0.7); Eosinophils % (A) 1 %; HCT 27.4 % (34.0-46.0); HGB 9.1 gm/dL (11.4-16.0); Lymphocytes % (A) 27 %; MCH 30.9 pg (25.0-35.0); MCV 93.7 fL (80.0-100.0); Mean Platelet Volume 8.7; Monocytes # (A) 0.4 k/uL (0-1.0); Monocytes % (A) 6 %; Neutrophils # (A) 4.7 k/uL (1.3-7.7); Neutrophils % (A) 63 %; Platelet Count 210 k/uL (150-450); RBC 2.93 m/uL (3.80-5.40); RDW 13.2 % (11.5-15.5); WBC 7.4 k/uL (3.8-10.6)
[2019-06-10 09:58] VITALS: RESP 20; TEMP 98.1
--- NOTE | 2019-06-10 10:35 | PN ---
PROGRESS NOTE DATE OF DICTATION: June 10, 2019 Patient is a 23-year-old pleasant white female admitted to the hospital with upper GI bleed. She had several episodes of coffee-ground emesis and black tarry stools of 2 days duration. Hemoglobin was 12.9 g/dL. She was admitted to hospital yesterday and she had upper endoscopy done yesterday that revealed antral ulcer with a deformed antrum and severe pyloric stenosis. She is presently on Protonix 40 mg twice daily, doing much better. Abdominal pain has resolved on clear liquid diet, tolerating well. No further episodes of bleeding. PHYSICAL EXAMINATION: Appears comfortable. No apparent distress. VITAL SIGNS: Stable. Blood pressure 101/56, pulse rate 81, temperature 98.1. HEENT examination unremarkable. Conjunctivae pink. Sclerae anicteric. Oral cavity no lesions. NECK: No JVD or lymph node enlargement. CHEST: The chest was clear to auscultation. HEART: Regular rate and rhythm. ABDOMEN: Soft. Bowel sounds are positive. No organomegaly. EXTREMITIES: No pedal edema. SKIN no rashes. NEUROLOGIC: Alert and oriented x3. No focal deficits. LABS: Done from yesterday WBC 20.3, hemoglobin 11.2, platelets normal. CBC from today still pending. IMPRESSION: 1. Acute upper gastrointestinal bleed secondary to antral ulcer presently on Protonix 40 mg twice daily, doing well. 2. History of recurrent peptic ulcer disease with deformed antrum and severe pyloric stenosis. RECOMMENDATIONS: 1. Advance to a regular diet. 2. Protonix 40 mg twice daily. 3. If the patient is able to keep the hemoglobin stable and patient is able to tolerate a regular diet, she can be discharged home with outpatient followup in 1 month. 4. Discussed with the patient as well as the mother that we will plan on a repeat upper endoscopy in 3 months with possible pyloric dilation based on the symptoms. Thank you for this consultation. MMODL / IJN: [id number] /
[2019-06-10] MEDS ORDERED: HYDROcodone/APAP 5-325MG 1 EACH TAB PO STA ×2 (11:28→19:00)
[2019-06-10 12:26] VITALS: BP 114/63; PULSE 81
[2019-06-10 16:36] LABS: HCT 27.2 % (34.0-46.0); MCH 30.9 pg (25.0-35.0); MCHC 32.9 g/dL (31.0-37.0); MCV 93.7 fL (80.0-100.0); Mean Platelet Volume 9.9; Platelet Count 205 k/uL (150-450); RBC 2.91 m/uL (3.80-5.40); WBC 7.8 k/uL (3.8-10.6)
[2019-06-11] MEDS ORDERED: PANTOPRAZOLE 40 MG TABLET PO SCH (07:30)
--- NOTE | 2019-07-03 01:27 | P.DS ---
Providers Date of admission: 06/08/19 23:04 Expected date of discharge: 06/10/19 Attending physician: Aung Corea Consults: 06/08/19 23:04 Consult Physician Routine Consulting Provider: Stephen Mortensen Consult Reason/Comments: gib Do you want consulting provider notified?: Yes Primary care physician: Doreen Marcial Hospital Course: Discharge diagnosis Acute syncopal episode likely due to orthostatic hypotension while she was getting up from the toilet. Improved symptomatically now. Acute GI bleed with nausea and coffee-ground vomiting. Status post EGD showed antral gastritis and severe pyloric stenosis. Mild acute blood loss anemia. Hemoglobin 11.8 GERD History of EGD and peptic ulcer disease and dilation of the esophagus DVT prophylaxis with SCDs Hospital course Patient is a 23-year-old female with a known history of GERD, previous history of EGD and peptic ulcer several years ago came to ER after a syncopal episode and fall. Apparently patient has been having nausea and vomiting since yesterday. Patient did have a dark colored bowel movement and while she was getting up from the toilet, suddenly felt dizzy and lightheaded and had a syncopal episode. Patient lost consciousness for about a minute and she crawled to her bedroom and called her family. Denied any seizure activity. Denied any abdominal pain. Did have mild discomfort since yesterday. No loss of bowel or bladder control. No fever no chills. No headache or neck stiffness. Patient sustained lacerations on the Route of the nose and forehead. Patient denied any [id number] pain medication use. Patient did drink alcohol about 4 glasses on last Wednesday. Denied any regular alcohol use. Denied any smoking. No recent illnesses or sick contacts. No recent travel. CT angiogram of the chest showed no evidence of pulmonary embolism. CT facial and CT head and neck showed no fractures or dislocations. No acute intracranial process. : Patient was continued on IV hydration and continue with PPI and follow with H&H. Gastroenterology was consulted. Monitor closely. Patient was seen by gastroenterology and recommended EGD. Showed 1. Antral gastritis and linear antral ulcer in the prepyloric area with no active bleeding . 2. Severe Pyloric stenosis. 3. Deformed pylorus. Patient was recommended to follow with GI clinic for repeat endoscopy and possible dilatation. Otherwise patient is tolerating oral diet. Dizziness and lightheadedness is much improved and able to tolerate oral diet. Patient is being discharged home today. PHYSICAL EXAMINATION: Patient is lying in the bed comfortably, no acute distress, awake alert and oriented.. HEENT: Normocephalic. Neck is supple. Pupils reactive. Nostrils clear. Oral cavity is moist. Ears reveal no drainage. Neck reveals no JVD, carotid bruits, or thyromegaly. CHEST EXAMINATION: Trachea is central. Symmetrical expansion. Lung hill clear to auscultation and percussion. CARDIAC: Normal S1, S2 with no gallops. No murmurs ABDOMEN: Soft. Bowel sounds normal. No organomegaly. No abdominal bruits. Extremities: reveal no edema. No clubbing or cyanosis Neurologically awake, alert, oriented x3 with well-coordinated movements. No focal deficits noted Skin: No rash or skin lesions. Psychiatric: Coperative. Nonsuicidal Musculoskeletal: No joint swelling or deformity. Normal range of motion. Discharge vitals reviewed. Patient Condition at Discharge: Fair Plan - Discharge Summary Discharge Rx Participant: No New Discharge Prescriptions: New Pantoprazole [Protonix] 40 mg PO BID #60 tablet. HYDROcodone/APAP 5-325MG [Lengby 5-325] 1 each PO Q6HR PRN 3 Days #12 tab PRN Reason: Pain Continue Ferrous Sulfate [Iron (65 MG Elemental)] 325 mg PO DAILY Biotin 5 mg PO DAILY Acetaminophen [Tylenol] 650 mg PO Q6HR PRN PRN Reason: Headache Pedi Multivit No.25/Folic Acid [Flintstones Multivit Chew Tab] 1 tab PO DAILY Discharge Medication List Biotin 5 mg PO DAILY 06/08/19 [History] Ferrous Sulfate [Iron (65 MG Elemental)] 325 mg PO DAILY 06/08/19 [History] Acetaminophen [Tylenol] 650 mg PO Q6HR PRN 06/09/19 [History] Pedi Multivit No.25/Folic Acid [Flintstones Multivit Chew Tab] 1 tab PO DAILY 06/09/19 [History] HYDROcodone/APAP 5-325MG [Lengby 5-325] 1 each PO Q6HR PRN 3 Days #12 tab 06/10/19 [Rx] Pantoprazole [Protonix] 40 mg PO BID #60 tablet. 06/10/19 [Rx] Follow up Appointment(s)/Referral(s): Teofilo Beth MD [STAFF PHYSICIAN] - 1-2 days Discharge Disposition: HOME SELF-CARE
== END 2019-06-10 21:36 | disposition home or self-care (01) ==
LOC: EC 20:18 → 3SCARD 23:04
PROVIDERS: ADMIT Hospitalist; ATTEND Hospitalist
DX: R55 Syncope and collapse (principal); K29.71 Gastritis, unspecified, with bleeding; K31.1 Adult hypertrophic pyloric stenosis; Q40.3 Congenital malformation of stomach, unspecified; K25.4 Chronic or unspecified gastric ulcer with hemorrhage; D62 Acute posthemorrhagic anemia; K21.9 Gastro-esophageal reflux disease without esophagitis; S01.421A Laceration with foreign body of right cheek and temporomandibular area, initial encounter; S01.21XA Laceration without foreign body of nose, initial encounter; K44.9 Diaphragmatic hernia without obstruction or gangrene; K08.89 Other specified disorders of teeth and supporting structures; Z87.11 Personal history of peptic ulcer disease; Z87.19 Personal history of other diseases of the digestive system; Z79.899 Other long term (current) drug therapy; Z90.89 Acquired absence of other organs; Z98.890 Other specified postprocedural states; W18.11XA Fall from or off toilet without subsequent striking against object, initial encounter; Y92.012 Bathroom of single-family (private) house as the place of occurrence of the external cause; Y93.E8 Activity, other personal hygiene
CPT/HCPCS: 96376 ×2; 12013; 96361; 96374; 96375; 99291; 36415; 94760; 93005; 86900; 86901; 85379; 84439; 88305; 80053; 80048; 84443; 82550; 83735; 84484; 85025 ×2; 85027; 85610; 85730; 86850; 81001; 81025; 80320; 72125; 70486; 70450; 71275; 43239; G0378 ×3; J2405; J2001 ×2; J2704; C9113 ×3; Q9967

== ENCOUNTER → 2021-10-24 | Day surgery (SDC) | payer BC ==
[2021-10-22 11:07] VITALS: BMI 16.6
[~2021-10-24] MED LIST changes: +LIDOCAINE 1% INJ 10MG/ML (20 ML MDV) ONE; +PROPOFOL 10 MG/ML 20 ML VIAL IV ONE
[2021-10-24 08:54] VITALS: TEMP 97.8
--- NOTE | 2021-10-24 09:45 | P.PCN ---
Date of Procedure: 10/24/21 Procedure(s) Performed: BRIEF HISTORY: Patient is a 26-year-old, pleasant, white female scheduled for an upper endoscopy as a part of evaluation of epigastric pain and early satiety. She was diagnosed with peptic ulcer disease and duodenal stricture in 2017 and since then has been maintained on Protonix 40 mg daily.. She is been having worsening symptoms and hence scheduled for an upper endoscopy with a possible dilation of the duodenal stricture. PROCEDURE PERFORMED: Esophagogastroduodenoscopy biopsy and balloon dilation of duodenal stricture. PREOPERATIVE DIAGNOSIS: Epigastric pain and early satiety and history of duodenal stricture. IV sedation per anesthesia. PROCEDURE: After informed consent was obtained, the patient was brought into the endoscopy unit. IV sedation was administered by Anesthesia under continuous monitoring. Initially the Olympus GIF-140 video endoscope was inserted into the mouth. Esophagus intubated without any difficulty. It was gradually advanced into the stomach and duodenum and carefully examined. The bulb of the duodenum appeared to superficial ulceration identified with friable mucosa and biopsies were done from this area. Along the duodenal sweep there was a tight stricture and the scope could not be advanced of this stricture. The luminal opening was actually 5 mm in diameter. At this time and proceeded with balloon dilation using 8-10 mm TTS balloon for 30 seconds. Following the dilation I was not able to advance the scope through into the second part of the duodenum. The scope at this time was withdrawn to the stomach, adequately insufflated with air, and upon careful examination, mucosa of the antrum, body, cardia and the fundus ap peared normal. Some retained food noted in the fundus of the stomach suggestive of gastric outlet obstruction. Biopsies were done from the antrum as well as the duodenal ulcer. The scope was then withdrawn into the esophagus. The GE junction was located at 39 cm from the incisors. The esophagus appeared normal. There were no erosions or ulcerations seen and the patient tolerated the procedure well. IMPRESSION: 1.. 2 duodenal stricture along the duodenal sweep status post balloon dilation using 8-10 mm TTS balloon. 2. Superficial linear duodenal bulbar ulcer so 3. Small amount of retained food in the stomach suggestive of gastric outlet obstruction RECOMMENDATIONS: The findings of this examination were discussed with the patient as well as a family. She was advised to increase her Protonix to 40 mg twice daily. Follow up in office in 6 weeks. If she still remains symptomatic because of surgical evaluation for possible gastrojejunostomy.
[2021-10-24 10:03] VITALS: RESP 16
[2021-10-24 11:02] VITALS: BP 108/71; PULSE 72
== END ==
LOC: ORWHC2ENDO 08:34
PROVIDERS: ATTEND Internal Medicine Gastroenterology
DX: K31.5 Obstruction of duodenum (principal); K26.9 Duodenal ulcer, unspecified as acute or chronic, without hemorrhage or perforation; K29.50 Unspecified chronic gastritis without bleeding; K29.80 Duodenitis without bleeding; K21.9 Gastro-esophageal reflux disease without esophagitis; Z79.899 Other long term (current) drug therapy
CPT/HCPCS: 43239; 43245; 81025; 88305; J2001; J2704; C1726